=== PATIENT | female | born 1995 | race Hispanic/Latino ===

== ENCOUNTER 2018-10-16 17:05 | Emergency (ER) | payer BC ==
[2018-10-16] MEDS ORDERED: Lidocaine 1% w/Epinephrine 1:100K 20 ML VIAL ONE (17:37)
[2018-10-16] MEDS ORDERED: Adacel (T-DAP) 0.5 ML SYRINGE ONE (18:00)
== END 2018-10-16 18:24 | disposition home or self-care (01) ==
LOC: SCSER 17:05
DX: L02.412 Cutaneous abscess of left axilla (principal)
CPT/HCPCS: 10061; 90471; 90715; J2001